=== PATIENT | female | born 1975 | race Caucasian/White ===

== ENCOUNTER 2016-06-07 18:10 | Emergency (ER) | payer OTHER ==
[2016-06-07] MEDS ORDERED: Albuterol/Ipratropium NEB.SOL* Albuterol 2.5 MG/Ipratropium 0.5 MG 3 ML INH ONE (18:43)
[2016-06-07] MEDS ORDERED: methylPREDNISolone 125 MG* 2 ML VIAL IV ONE (18:43)
[2016-06-07] MEDS ORDERED: diPHENhydraMINE IV* 50 MG/ML 1 ml VIAL (BENADRYL) IV ONE (18:44)
[2016-06-07] MEDS ORDERED: Famotidine IV* 10 MG/ML 2 ML (20 mg) IV SLOW PU ONE (18:45)
[2016-06-07] MEDS ORDERED: NS 0.9% 1000 ML* 1,000 ML IV ONE (19:11)
[2016-06-07] MEDS ORDERED: Ipratropium 0.5MG/2.5ML NEB* 0.5 MG/2.5 ML NEB.SOLN INH ONE (19:12)
[2016-06-07] MEDS ORDERED: Albuterol 2.5 MG/3 ML NEB.SOL* (0.083%) INH ONE (19:12)
--- NOTE | 2016-06-07 20:53 | UC ---
Alix Hampton Erika, scribed for Maryse Candelario MD on 06/07/16 at 1908 . Allergic Reaction HPI - HPI Summary HPI Summary: Patient is a 41-year-old female presenting to [facility] with a CC of a possible allergic reaction. Patient reports that starting at 14:00 today, she developed gradually worsening chest tightness, wheezing, and a slightly hoarse voice. She also reports some mild hives. Patient reports she has been using a wood stove recently, but has no new medications or exposures and is not sure what she would have an allergic reaction to. She does note allergies to dust and mold. Patient reports she had bronchitis in March 2016, but denies current URI symptoms. Hx HTN - took her metoprolol today. Hx lupus profundus. PSHx , ACL repair. FHx CAD. Patient does not smoke. - History of Current Complaint Chief Complaint: UCAllergicReaction Stated Complaint: POSSIBLE ALLEGRIC REACTION Hx Obtained From: Patient Hx Last Menstrual Period: May 23, 2016 Onset/Duration: Gradual Onset, Lasting Hours, Still Present Severity Initially: Mild Severity Currently: Moderate Pain Intensity: 7 Pain Scale Used: 0-10 Numeric Character: Hives Alleviating Factor(s): Nothing Associated Signs And Symptoms: Positive: Cough Wheezing, Hoarseness, Other: - chest tightness - Related Hx Possible Reaction To: Environmental Exposure - wood stove smoke - Allergies/Home Medications Allergies/Adverse Reactions: Allergies Allergy/AdvReac Type Severity Reaction Status Date / Time No Known Allergies Allergy Verified 06/07/16 18:28 Home Medications: Home Medications Dextromethorphan-Phenylephrine [Daytime Cold & Flu Relief 10-5-325 mg] [History] Metoprolol Tartrate [Lopressor] 100 mg PO 06/07/16 [History] Pseudoephedrine-Ibuprofen [Advil Cold & Sinus 30-200 mg] 06/07/16 [History] PMH/Surg Hx/FS Hx/Imm Hx Previously Healthy: No - lupus profundus Cardiovascular History Of: Reports: Hypertension - Surgical History Surgical History: Yes Surgery Procedure, Year, and Place: ACL repair knee 10 years. C section 11 years ago - Family History Known Family History: Positive: Cardiac Disease - Social History Occupation: Employed Full-time Lives: With Family Alcohol Use: None Substance Use Type: None Smoking Status (MU): Never Smoked Tobacco Review of Systems Constitutional: Negative Skin: Rash Eyes: Negative ENT: Negative Respiratory: Other - wheezing, hoarse voice Cardiovascular: Other - chest tightness Gastrointestinal: Negative Genitourinary: Negative Motor: Negative Neurovascular: Negative Musculoskeletal: Negative Neurological: Negative Psychological: Negative All Other Systems Reviewed And Are Negative: Yes Physical Exam Triage Information Reviewed: Yes Appearance: Well-Appearing, Well-Nourished, Pain Distress Vital Signs: Initial Vital Signs Temp 97.8 F 06/07/16 18:20 Pulse 103 06/07/16 18:20 Resp 22 06/07/16 18:20 BP 187/108 06/07/16 18:20 Pulse Ox 98 06/07/16 18:20 elevated BP and pulse noted Vital Signs Reviewed: Yes Eyes: Positive: Conjunctiva Clear, Other: - PERRL, EOMI ENT: Positive: Normal ENT inspection Neck: Positive: Supple Respiratory: Positive: Decreased breath sounds, Wheezing - Expiratory and inspiratory Cardiovascular: Positive: No Murmur, Pulses Normal, Brisk Capillary Refill, Tachycardia - at 103 bpm on triage Musculoskeletal: Positive: Strength Intact, ROM Intact Neurological: Positive: Alert, Muscle Tone Normal Psychological Exam: Normal Skin Exam: Other - Urticaria anterior chest and left arm Re-Evaluation - Re-Evaluation First Eval Re-Evaluation Time: 20:22 Change: Improved Comment: increased aeration, no wheezes, redness gone on chest. patient feels fully improved and would like to be discharged Second Eval Re-Evaluation Time: 20:40 Change: Improved - BP improved. Pt advised to have definite follow up. Allergic Reaction Course/Dx - Differential Dx/Diagnosis Differential Diagnosis/HQI/PQRI: Anaphylaxis, Bronchospasm, Urticaria Provider Diagnoses: 1. Anaphylactic allergic reaction. 2. Blood pressure in poor control Discharge - Discharge Plan Condition: Stable Disposition: HOME Prescriptions: Albuterol HFA INHALER* [Ventolin HFA Inhaler*] 1 puff INH Q4H PRN #1 mdi PRN Reason: Shortness Of Breath Famotidine TAB 40 MG(NF) [Pepcid TAB 40 MG(NF)] 40 mg PO DAILY #5 tab predniSONE TAB* [Deltasone TAB*] 40 mg PO DAILY #10 tab Patient Education Materials: Anaphylaxis (ED) Forms: *Work Release Referrals: [facility] [Provider Group] - 2 Days Additional Instructions: You were given SoluMedrol 125mg IV, Pepcid 20mg IV and Benadryl 50mg IV at 7: 30mg. You were also given albuterol and ipratropium as a nebulized treatment. Take Benadryl 50 mg 4x/day for the next 48 hours. Your blood pressure is elevated. Follow up with a provider with 1-30 days for re-evaluation. GO TO THE ER FOR ANY NEW OR WORSENING SYMPTOMS The documentation as recorded by the Ailx bocanegra Erika accurately reflects the service I personally performed and the decisions made by me, Maryse Candelario MD.
[2016-06-07 21:12] VITALS: BP 161/104
== END 2016-06-07 20:47 | disposition home or self-care (01) ==
LOC: UCEAST 18:10
DX: T78.2XXA Anaphylactic shock, unspecified, initial encounter (principal); I10 Essential (primary) hypertension; L93.2 Other local lupus erythematosus
CPT/HCPCS: 96360; 96361; 96374; 96375; 99203; G0463; J1200; J2930; J7644

== ENCOUNTER 2018-01-16 13:32 | Emergency (ER) | payer OTHER ==
--- OUTSIDE RECORDS SUMMARY | 2018-01-16 13:39 | XMS REPORT ---
:1975 External Reference #:[id number] Author Organization [facility] Address [address] [place] [address] Phone [phone] Care Team Providers Name Role Phone Dian Joy MD Care Team Information Stem Roller Operator Unavailable Cari Drew MD Primary Care Physician Unavailable Payers Type Date Identification Numbers Payment Provider Subscriber Commercial Policy Number: [id number] [employer] [place] [place] [employer] Number: [id number] [id number] PayID: [id number] [place] [address] Problems Date Description Provider Status Onset: 09/04/2016 Essential hypertension Manish Salgado DO [facility] Active Onset: 12/22/2017 Brachial neuritis Charanjit Dorado M.D. Active Family History Date Family Member(s) Problem(s) Comments General Heart Disease : (age 28 Years) Father due to Cerebral Aneurysm Hemorrhage Father Hypertension Mother Hypertension Social History Type Date Description Comments Marital Status Lives With 09/01/2016 Family Patient is originally from [place], she did live in [place] for awhile. 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 She lives in [place] with and daughter and dog Occupation Currently Working registrar ETOH Use Occasionally consumes wine Smoking Patient is a former smoker Recreational Drug Use Denies Drug Use Daily Caffeine Consumes on average 3 cups of regular coffee per day Exercise Type/Frequency Exercises sporadically Allergies, Adverse Reactions, Alerts Date Description Reaction Status Severity Comments 11/04/2016 Amlodipine active fatigue 09/01/2016 NKDA inactive Medications Medication Date Status Form Strength Qnty SIG Indications Ordering Provider Methylprednisolon 12/22 Active TBPK 4mg 1pack take as M54.12 Charanjit jordi Dorado M.D. Lisinopril 09/24 Active Tablets 10mg 90tab 1 by mouth Manish SRony /2017 s every day DO JOSE Salgado Breo Ellipta Active Aerosol 200-25mcg one Unknown /0000 /Inh inhalation daily Montelukast Active Tablets 10mg 1 by mouth Unknown Sodium /0000 every day as needed Ventolin HFA Active Aerosol 108(90Bas 1 puffs by Unknown /0000 e) mouth mcg/Act every 4 hours as needed Metoprolol Active Tablets ER 100mg 90tab 1 by mouth Manish SRony Succinate ER /0000 24HR s every day DO JOSE Salgado Tramadol Active Tablets 37.5-325m 1 tabs by Unknown Hydrochloride/Mayur /0000 g mouth 3 taminophen times a day as needed Dymista Active Suspension 137-50mcg 2 squirts Unknown /0000 /Act each nostril daily as needed Zoloft Active Tablets 25mg 1 by mouth Unknown /0000 every day Naproxen Active Tablets 500mg 1 tablet Unknown /0000 with food by mouth twice a day as needed Cyclobenzaprine Active Tablets 10mg take 1 Unknown HCL /0000 tablet by mouth twice a day if needed Amlodipine 09/04 Hx Tablets 10mg 30tab 1 by mouth I10 Manish Gallagher Bes s every day Rodriguez Salgado DO [facility] 09/24 Vital Signs Date Vital Result Comment 12/22/2017 Height 69.5 inches 5'9.50" Weight 239.00 lb Heart Rate 88 /min BP Systolic Sitting 140 mmHg BP Diastolic Sitting 88 mmHg Respiratory Rate 16 /min Pain Level 5 BMI (Body Mass Index) 34.8 kg/m2 11/04/2016 Height 70 inches 5'10" Weight 226.00 lb Heart Rate 84 /min BP Systolic Sitting 148 mmHg Rue large cuff BP Diastolic Sitting 96 mmHg Rue large cuff BP Systolic Standing 126 mmHg Rue large cuff BP Diastolic Standing 90 mmHg Rue large cuff Respiratory Rate 16 /min BMI (Body Mass Index) 32.4 kg/m2 09/24/2016 Height 70 inches 5'10" Weight 227.00 lb with sandals Heart Rate 72 /min BP Systolic 137 mmHg Home wrist L cuff HR 100 BP Diastolic 91 mmHg Home wrist L cuff HR 100 BP Systolic Sitting 136 mmHg Rue LRG cuff BP Diastolic Sitting 102 mmHg Rue LRG cuff BP Systolic Standing 130 mmHg Rue LRG cuff BP Diastolic Standing 96 mmHg Rue LRG cuff Respiratory Rate 16 /min BMI (Body Mass Index) 32.6 kg/m2 09/04/2016 Height 70 inches 5'10" Weight 226.00 lb Heart Rate 84 /min BP Systolic Sitting 150 mmHg BP Diastolic Sitting 102 mmHg BP Systolic Standing 154 mmHg BP Diastolic Standing 106 mmHg Respiratory Rate 16 /min BMI (Body Mass Index) 32.4 kg/m2 Results Test Date Test Result H/L Range Note Basic Metabolic Panel 11/02/2016 Sodium 135 mmol/L 133-145 Potassium 4.2 mmol/L 3.5-5.0 Chloride 103 mmol/L 101-111 Co2 Carbon Dioxide 25 mmol/L 22-32 Anion Gap 7 mmol/L 2-11 Glucose 86 mg/dL 70-100 Blood Urea Nitrogen 17 mg/dL 6-24 Creatinine 0.76 mg/dL 0.51-0.95 BUN/Creatinine Ratio 22.4 High 8-20 Calcium 8.8 mg/dL 8.6-10.3 Egfr Non- 84.3 >60 Egfr 108.4 >60 1 Basic Metabolic Panel 09/24/2016 Sodium 135 mmol/L 133-145 Potassium 4.0 mmol/L 3.5-5.0 Chloride 104 mmol/L 101-111 Co2 Carbon Dioxide 24 mmol/L 22-32 Anion Gap 7 mmol/L 2-11 Glucose 91 mg/dL 70-100 Blood Urea Nitrogen 12 mg/dL 6-24 Creatinine 0.71 mg/dL 0.51-0.95 BUN/Creatinine Ratio 16.9 8-20 Calcium 8.8 mg/dL 8.6-10.3 Egfr Non- 91.2 >60 Egfr 117.3 >60 2 1 Because ethnic data is not always readily available, this report includes an eGFR for both -Americans and non- Americans. The National Kidney Disease Education Program (NKDEP) does not endorse the use of the MDRD equation for patients that are not between the ages of 18 and 70, are , have extremes of body size, muscle mass, or nutritional status, or are non- or non-. According to the National Kidney Foundation, irrespective of diagnosis, the stage of the disease is based on the level of kidney function: Stage Description GFR(mL/min/1.73 m(2)) 1 Kidney damage with normal or decreased GFR 90 2 Kidney damage with mild decrease in GFR 60-89 3 Moderate decrease in GFR 30-59 4 Severe decrease in GFR 15-29 5 Kidney failure <15 (or dialysis) 2 Because ethnic data is not always readily available, this report includes an eGFR for both -Americans and non- Americans. The National Kidney Disease Education Program (NKDEP) does not endorse the use of the MDRD equation for patients that are not between the ages of 18 and 70, are , have extremes of body size, muscle mass, or nutritional status, or are non- or non-. According to the National Kidney Foundation, irrespective of diagnosis, the stage of the disease is based on the level of kidney function: Stage Description GFR(mL/min/1.73 m(2)) 1 Kidney damage with normal or decreased GFR 90 2 Kidney damage with mild decrease in GFR 60-89 3 Moderate decrease in GFR 30-59 4 Severe decrease in GFR 15-29 5 Kidney failure <15 (or dialysis) Procedures Description No Information Encounters Type Date Location Provider CPT E/M Dx Office Visit 11/04/2016 8:15a [facility] [place] [address] [address] [facility] Office Visit 09/24/2016 8:20a [facility] [place] [address] [address] [facility] Office Visit 09/04/2016 9:00a [facility] [place] [address] [address] [facility] F17.201 Plan of Care 12/22/2017 - Charanjit Dorado M.D.M54.12 Radiculopathy, cervical regionNew Medication:Methylprednisolone 4 mgNew Therapy:Physical TherapyFollow up:f/u with Dr. Drew
[2018-01-16 14:05] VITALS: BP 151/107
--- NOTE | 2018-01-16 14:14 | UC ---
Throat Pain/Nasal Reese HPI - HPI Summary HPI Summary: 1 month of worsening and unresolved sinus pain no fevers--pain and congestion on left side of face and ear - History of Current Complaint Chief Complaint: UCRespiratory Stated Complaint: SINUS ISSUE EAR PAIN DENTAL PAIN Time Seen by Provider: 01/16/18 14:02 Hx Obtained From: Patient Hx Last Menstrual Period: 01/15/18 ?: No Onset/Duration: Gradual Onset, Lasting Weeks - 4, Still Present Pain Intensity: 5 Pain Scale Used: 0-10 Numeric Cough: None Associated Signs & Symptoms: Positive: Sinus Discomfort, Nasal Discharge - Allergies/Home Medications Allergies/Adverse Reactions: Allergies Allergy/AdvReac Type Severity Reaction Status Date / Time No Known Allergies Allergy Verified 01/16/18 14:05 Home Medications: Home Medications Naproxen [Naproxen 500 mg tab] 500 mg PO PRN 01/16/18 [History] PMH/Surg Hx/FS Hx/Imm Hx Cardiovascular History: Hypertension Psychological History: Depression - Surgical History Surgical History: Yes Surgery Procedure, Year, and Place: BUCKET HANDLE TEAR/ACL KNEE SURGERY-LEFT. C SECTION x1 - Family History Known Family History: Positive: Cardiac Disease - Social History Occupation: Employed Full-time Lives: With Family Alcohol Use: Occasionally Substance Use Type: None Smoking Status (MU): Former Smoker Type: Cigarettes Have You Smoked in the Last Year: Yes When Did the Patient Quit Smoking/Using Tobacco: summer 2017 Review of Systems Constitutional: Negative Skin: Negative Eyes: Negative ENT: Ear Ache - left, Sinus Congestion, Sinus Pain/Tenderness Respiratory: Negative Cardiovascular: Negative Gastrointestinal: Negative Genitourinary: Negative Motor: Negative Neurovascular: Negative Musculoskeletal: Negative Neurological: Negative Psychological: Negative Is Patient Immunocompromised?: No All Other Systems Reviewed And Are Negative: Yes Physical Exam Triage Information Reviewed: Yes Appearance: Well-Appearing, No Pain Distress, Well-Nourished Vital Signs: Initial Vital Signs Temp 98.3 F 01/16/18 13:57 Pulse 82 01/16/18 13:57 Resp 16 01/16/18 13:57 BP 151/107 01/16/18 13:57 Pulse Ox 99 01/16/18 13:57 Vital Signs Reviewed: Yes Eye Exam: Normal Eyes: Positive: Conjunctiva Clear ENT Exam: Normal ENT: Positive: Normal ENT inspection, Hearing grossly normal, Pharynx normal, Nasal congestion, TMs normal, Dental tenderness, Sinus tenderness, Uvula midline. Negative: Nasal drainage, Tonsillar swelling, Tonsillar exudate, Trismus, Muffled voice, Hoarse voice Dental Exam: Normal Neck exam: Normal Neck: Positive: Supple, Nontender, No Lymphadenopathy Respiratory Exam: Normal Respiratory: Positive: Chest non-tender, Lungs clear, Normal breath sounds, No respiratory distress, No accessory muscle use Cardiovascular Exam: Normal Cardiovascular: Positive: RRR, No Murmur, Pulses Normal, Brisk Capillary Refill Musculoskeletal Exam: Normal Musculoskeletal: Positive: Strength Intact, ROM Intact, No Edema Neurological Exam: Normal Neurological: Positive: Alert, Muscle Tone Normal Psychological Exam: Normal Skin Exam: Normal Throat Pain/Nasal Course/Dx - Course Assessment/Plan: Mucinex D, Augmentin, continue flonase, nasal rinse, follow blood pressure with pcp - Differential Dx/Diagnosis Provider Diagnoses: hypertension in poor control, acute rhinosinusitis Discharge - Sign-Out/Discharge Documenting (check all that apply): Patient Departure All imaging exams completed and their final reports reviewed: No Studies - Discharge Plan Condition: Stable Disposition: HOME Prescriptions: Amoxicillin/Clavulanate TAB* [Augmentin TAB 875*] 875 mg PO BID #20 tab Patient Education Materials: Decongestant/Expectorant (By mouth), Sinusitis (ED ), Hypertension (ED), Nasal Rinse (ED) Referrals: Cari Tijerina MD [Primary Care Provider] - 2 Weeks - Billing Disposition and Condition Condition: STABLE Disposition: Home
== END 2018-01-16 14:39 | disposition home or self-care (01) ==
LOC: UCEAST 13:32
DX: J01.90 Acute sinusitis, unspecified (principal); I10 Essential (primary) hypertension; Z87.891 Personal history of nicotine dependence
CPT/HCPCS: 99201; G0463

== ENCOUNTER 2018-11-07 14:06 | Emergency (ER) | payer OTHER ==
[2018-11-07 15:51] VITALS: BP 158/102
--- NOTE | 2018-11-07 16:03 | UC ---
Ear Complaint HPI - HPI Summary HPI Summary: 43 yo female with onset of decreased left ear hearing x 3 days started after ear "Popped" mild pain no URI symptoms - History of Current Complaint Chief Complaint: UCEar Stated Complaint: EAR PAIN Time Seen by Provider: 11/07/18 15:39 Hx Obtained From: Patient Hx Last Menstrual Period: 2 weeks ago Onset/Duration: Sudden Onset Severity Initially: Mild Severity Currently: Mild Pain Intensity: 3 Pain Scale Used: 0-10 Numeric Aggravating Factors: Nothing Alleviating Factors: Nothing Associated Signs/Symptoms: Positive: Hearing Loss - Allergies/Home Medications Allergies/Adverse Reactions: Allergies Allergy/AdvReac Type Severity Reaction Status Date / Time No Known Allergies Allergy Verified 11/07/18 15:46 PMH/Surg Hx/FS Hx/Imm Hx Previously Healthy: Yes - LUPUS Endocrine History: Thyroid Disease Cardiovascular History: Hypertension - Surgical History Surgical History: Yes Surgery Procedure, Year, and Place: BUCKET HANDLE TEAR/ACL KNEE SURGERY-LEFT. C SECTION x1 - Family History Known Family History: Positive: Cardiac Disease, Hypertension - Social History Alcohol Use: Occasionally Substance Use Type: None Smoking Status (MU): Former Smoker Type: Cigarettes Have You Smoked in the Last Year: Yes When Did the Patient Quit Smoking/Using Tobacco: summer 2017 Review of Systems All Other Systems Reviewed And Are Negative: Yes Constitutional: Positive: Negative Skin: Positive: Negative Eyes: Positive: Negative ENT: Positive: Ear Ache Respiratory: Positive: Negative Cardiovascular: Positive: Negative Gastrointestinal: Positive: Negative Genitourinary: Positive: Negative Motor: Positive: Negative Neurovascular: Positive: Negative Musculoskeletal: Positive: Negative Neurological: Positive: Negative Psychological: Positive: Negative Physical Exam Triage Information Reviewed: Yes Appearance: Well-Appearing, No Pain Distress, Well-Nourished Vital Signs: Initial Vital Signs Temp 97.8 F 11/07/18 15:46 Pulse 107 11/07/18 15:46 Resp 18 11/07/18 15:46 Pulse Ox 97 11/07/18 15:46 BP 158/102 (manual) Vital Signs Reviewed: Yes Eyes: Positive: Conjunctiva Clear ENT: Positive: Hearing grossly normal, TM bulging - L- cerumen obscurring about 70% of TM. Negative: Nasal congestion, Nasal drainage, Tonsillar swelling , Tonsillar exudate, Trismus Neck: Positive: Supple, Nontender, No Lymphadenopathy Respiratory: Positive: Lungs clear, Normal breath sounds, No respiratory distress Cardiovascular: Positive: RRR, No Murmur Musculoskeletal: Positive: ROM Intact, No Edema Neurological: Positive: Alert Psychological Exam: Normal Skin Exam: Normal Re-Evaluation - Re-Evaluation First Eval Re-Evaluation Time: 16:18 Change: Improved - Hearing markedly improved after the flush, Ear Complaint Course/Dx - Differential Dx/Diagnosis Provider Diagnosis: Left serous otitis media, Left ear impacted cerumen Discharge - Sign-Out/Discharge Documenting (check all that apply): Patient Departure All imaging exams completed and their final reports reviewed: No Studies - Discharge Plan Condition: Stable Disposition: HOME Patient Education Materials: Cerumen Impaction (ED), Serous Otitis Media (ED) Referrals: Cari Tijerina MD [Primary Care Provider] - 2 Weeks (if not completly better) - Billing Disposition and Condition Condition: STABLE Disposition: Home
== END 2018-11-07 16:25 | disposition home or self-care (01) ==
LOC: UCEAST 14:06
DX: H66.92 Otitis media, unspecified, left ear (principal); H61.22 Impacted cerumen, left ear; I10 Essential (primary) hypertension; E07.9 Disorder of thyroid, unspecified; A18.4 Tuberculosis of skin and subcutaneous tissue; Z87.891 Personal history of nicotine dependence
CPT/HCPCS: 99212; G0463